=== PATIENT | male | born 1995 | race American Indian/Alaskan Native ===

== ENCOUNTER 2017-11-16 18:26 | Emergency (ER) | payer SELFPAY ==
[2017-11-16 18:50] VITALS: BP 123/64
[2017-11-16] MEDS ORDERED: TYLENOL PO ONE (18:50)
== END 2017-11-16 19:50 | disposition left against medical advice (07) ==
LOC: ED 18:26
DX: J02.9 Acute pharyngitis, unspecified (principal); Z53.21 Procedure and treatment not carried out due to patient leaving prior to being seen by health care provider